=== PATIENT | male | born 1985 ===

== ENCOUNTER → 2022-08-04 11:01 | Outpatient (CLI) | payer BC, SELFPAY ==
--- NOTE | ~2022-08-04 | XR_ITS ---
EXAMINATION: XR fl inj shoulder LT - MR/CT DATE: 08/04/2022 12:06 INDICATION: Left shoulder pain. TECHNIQUE: A time-out was performed to verify the patient's name, date of , and procedure to b e performed. The procedure including the risks, benefits, and alternatives was discussed with the pat ient. Risks discussed included bleeding and infection. The patient understood the risks and agreed to proceed. The skin overlying the left glenohumeral joint was prepped and draped in usual sterile fash ion. Anesthetic was administered with 1% lidocaine subcutaneously. A 22 G needle was advanced under fluoroscopic guidance into the joint. Subsequently, injectate consisting of 12 mL of 1:200 Multihan ce, 1:4 1% lidocaine, and 1:4 Omnipaque 240 was instilled. The needle was removed and the entry site was cleaned and dressed. There were no immediate complications. Fluoroscopy exposure time was 0.0 m inutes. The total number of images was 3. FINDINGS: Real-time fluoroscopy demonstrates the needle and contrast in the left glenohumeral joint. IMPRESSION: 1. Successful left glenohumeral joint injection of contrast for subsequent MR arthrography. Reviewed, dictated and finalized at location A. IMPRESSION: 1. Successful left glenohumeral joint injection of contrast for subsequent MR a rthrography.
--- NOTE | ~2022-08-04 | MR_ITS ---
EXAMINATION: MR shoulder LT w con DATE: 08/04/2022 12:37 INDICATION: Left shoulder pain. TECHNIQUE: Magnetic resonance imaging (MRI) of the left shoulder was performed without intravenous co ntrast after intra-articular injection of contrast (MR arthrogram). COMPARISON: None. FINDINGS: Coracoacromial arch: The acromion undersurface is curved in morphology (type II). There is old fracture deformity of dista l clavicle. There is mild acromioclavicular joint osteoarthritis. There is mild subacromial/subdeltoi d bursitis. Rotator cuff: There is an interstitial tear of supraspinatus and infraspinatus tendons at the distal insertion chiqui uring 13 mm anterior to posterior by 2 mm proximal to distal by 30% tendon thickness. Teres minor ten don is normal. Subscapularis tendon is normal. There is no fatty atrophy of the rotator cuff muscle b julio cesar. Biceps tendon and glenoid labrum: Biceps tendon is in bicipital groove. Intra-articular biceps tendon is normal. There is a tear of gle noid labrum from 11:00 to 12:00 (SLAP tear). There is a tear of the anteroinferior labrum. Fluid: The glenohumeral joint is well distended by contrast. Bones/cartilage: The glenoid cartilage is normal. Humeral head cartilage is normal. IMPRESSION: 1. Interstitial tear of the distal supraspinatus and infraspinatus tendons. 2. Labral tears. 3. Mild acromioclavicular joint osteoarthritis. 4. Mild subacromial/subdeltoid bursitis. Reviewed, dictated and finalized at location A.
== END ==
PROVIDERS: PCP Orthopaedic Surgery; Visit Provider Orthopaedic Surgery
DX: M25.512 Pain in left shoulder (principal); G89.29 Other chronic pain; M19.012 Primary osteoarthritis, left shoulder; S46.812A Strain of other muscles, fascia and tendons at shoulder and upper arm level, left arm, initial encounter; M75.52 Bursitis of left shoulder; T14.90XA Injury, unspecified, initial encounter
CPT/HCPCS: 23350; 73222; A9577; Q9967